=== PATIENT | male | born 1990 | race Two or more races ===

== ENCOUNTER 2019-01-12 01:42 | Emergency (ER) | payer SELFPAY ==
[~2019-01-12] VITALS: Ht 177.8 cm; Wt 104.3 kg
[2019-01-12 02:05] VITALS: BP 151/89
== END 2019-01-12 05:05 | disposition left against medical advice (07) ==
LOC: ER 01:46
DX: R10.9 Unspecified abdominal pain (principal); R00.2 Palpitations; Z53.21 Procedure and treatment not carried out due to patient leaving prior to being seen by health care provider
CPT/HCPCS: 71045